=== PATIENT | female | born 1950 | race Native Hawaiian/Other Pacific Islander ===

== ENCOUNTER 2020-01-02 16:24 | Emergency (ER) | payer MEDICARE, SELFPAY ==
[2020-01-02 16:31] VITALS: BP 144/74; PULSE 74; RESP 16; TEMP 36.7; O2SAT 99; BMI 39.4
--- NOTE | 2020-01-02 16:39 | XR_ITS ---
PROCEDURE: XR SHOULDER RT MIN 2V CLINICAL INDICATION: FALL Posttraumatic pain COMPARISON: No exams were available for comparison FINDINGS: No fracture, dislocation, lytic change, or blastic change evident. No significant degenerative change IMPRESSION: No acute findings. Dictated by: Dinh Blanchard MD 01/03/2020 07:22 Electronically signed by Dinh Blanchard MD in [place] 01/03/2020 07:22
[2020-01-02 16:52] VITALS: BP 144/74; PULSE 74; RESP 16; TEMP 36.7; O2SAT 99; BMI 39.2
--- NOTE | 2020-01-02 17:12 | HMH.EDUTC ---
[facility] [place] Impression: Shoulder contusion Qualifiers: Encounter type: initial encounter Laterality: right Qualified Code(s): S40.011A - Contusion of right shoulder, initial encounter Disposition: Home, Self-Care Condition on Discharge: Good Instructions: Contusion, DI for Contusion, How To Perform RICE (Rest, Ice, Compress, Elevate), DI for Shoulder Pain Additional Instructions: *RICE, Rest the extremity, Ice 15-20 minutes 3-4 times daily, Compress- wear the vincent wrap as discussed as much as possible to help reduce swelling and pain, Elevate the extremity when at rest *Vincent wrap is for support and help control swelling, use it except in the shower. Be sure that is not to tight but not to loose either *Elevate when resting *Ibuprofen every 6-8 hours as needed for pain an inflammation. if your doctor has said it is ok for you to take this medication, If need something more can take Tylenol in between doses of Ibuprofen to help Immediately follow up with your family doctor for new or worsening of symptoms, or no noticeable improvement over the next 3-5 days FOllow up with Family Doctor if no improvement for further evaluation and referral to Orthopedics if needed Call back later this evening or tomorrow for official Radiology reading of xray Referrals: Asuncion Snyder [Primary Care Provider] - As needed Time of Disposition: 17:41 Medical Decision Making - Jimi Inquiry Pt receiving controlled substance: No Jimi was queried for this patient: No Vital Signs: 01/02/20 16:31 01/02/20 16:52 Temperature 98.0 F 98.0 F Temperature Source Oral Oral Pulse Rate [Right Brachial] 74 74 Respiratory Rate 16 16 Blood Pressure [Right Arm] 144/74 H 144/74 H Blood Pressure Mean [Right Arm] 97 97 Blood Pressure Source [Right Arm] Automatic Cuff Automatic Cuff Blood Pressure Position [Right Arm] Sitting Sitting 02 Sat by Pulse Oximetry 99 99 Oxygen Delivery Method Room Air Room Air Orders (Tests/Meds): ORDERS Category Date Time Status XR shoulder RT min 2V Stat Exams 01/02/20 16:39 Taken - Radiology Data #1 Image(s): Shoulder Image Reviewed: Yes I reviewed the patient's radiology image w/the ED provider Preliminary Findings: No Fracture [place] [facility] [place] - General Stated complaint: AO fell, rt shoulder pain Time Seen by Provider: 01/02/20 17:00 Mode of Arrival: Ambulatory Source of Information: Patient Limitations: No Limitations Description of Symptoms (Recalled from Triage Doc. by RN): PATIENT C/O PAIN TO RIGHT SHOULDER AFTER FALLING AT HER SISTER'S HOUSE HEENT Symptoms (Recalled from RN notes): No Resp Symptoms (Recalled from RN notes): No Skin Symptoms (Recalled from RN notes): No MS Symptoms (Recalled from RN notes): Yes Functional Status (Recalled from RN notes): WNL - History of Present Illness Provider Complaint: Patient states that she was at a family members house and was going down the steps when she accidently missed the last step and fell States that she landed on the ground on her right side States that she didnt hit her head but is having pain in her right shoulder area when she moves her arm Denies any other injury States that she is able to move her fingers but when she tries to raise the arm it shoots pain down the arm - Related Data Allergies Allergy/AdvReac Type Severity Reaction Status Date / Time acetaminophen [From [place]] Allergy Verified 01/02/20 16:58 aspirin Allergy Verified 01/02/20 16:58 erythromycin base Allergy Verified 01/02/20 16:58 hydrocodone [From [place]] Allergy Verified 01/02/20 16:58 meperidine [From [place]] Allergy Verified 01/02/20 16:58 Sulfa (Sulfonamide Allergy Verified 01/02/20 16:58 Antibiotics) - Worker's Comp Is this a Worker's Comp case?: No H History - Hepatitis A Screen Drug use history?: No High risk sexual behaviors?: No History of sexually transmitted infection?: No Currently employed?: No Childcare worker?: No Do you h
[2020-01-02 17:45] VITALS: BP 144/74; PULSE 74; RESP 16; TEMP 36.7; O2SAT 99
== END 2020-01-02 17:50 | disposition home or self-care (01) ==
PROVIDERS: Emergency Provider Nurse Practitioner; PCP Family Medicine
DX: S40.011A Contusion of right shoulder, initial encounter (principal); W10.9XXA Fall (on) (from) unspecified stairs and steps, initial encounter; Y92.89 Other specified places as the place of occurrence of the external cause; Z88.1 Allergy status to other antibiotic agents; Z88.2 Allergy status to sulfonamides; Z88.5 Allergy status to narcotic agent
CPT/HCPCS: 73030; 99201